=== PATIENT | male | born 1950 | race Caucasian/White ===

== ENCOUNTER 2022-08-05 15:30 | Emergency (ER) | payer MEDICARE ==
[~2022-08-05] VITALS: Ht 185.4 cm; Wt 80.0 kg
[2022-08-05 15:39] VITALS: BP 163/83
[2022-08-05] MEDS ORDERED: TERAZOSIN1 MG PO (15:41)
[2022-08-05] MEDS ORDERED: FINASTERIDE5 MG PO (15:41)
[2022-08-05] MEDS ORDERED: TIAZAC180 MG (15:42)
[2022-08-05] MEDS ORDERED: FLECAINIDE100 MG PO (15:43)
[2022-08-05] MEDS ORDERED: TAMSULOSIN HCL0.4 MG PO (15:43)
[2022-08-05] MEDS ORDERED: ZETIA10 MG PO (15:43)
[2022-08-05] MEDS ORDERED: FUROSEMIDE20 MG PO (15:44)
[2022-08-05] MEDS ORDERED: LOSARTAN POTASS50 MG PO (15:44)
[2022-08-05] MEDS ORDERED: ASPIRIN325 MG PO (15:45)
[2022-08-05] MEDS ORDERED: COQ10300 MG PO (15:45)
[2022-08-05] MEDS ORDERED: POTASSIUM CITRATE XX (15:47)
[2022-08-05 16:20] LABS: BASO% 0.4 % (0-3); EOS% 2.2 % (0-8); HEMATOCRIT 42.4 % (39.0-50.0); HEMOGLOBIN 14.2 g/dl (14.0-18.0); IMMATURE GRANULOCYTES 0.4 % (0.0-5.0); LYMPH% 21.4 % (15-41); MEAN CELL VOLUME 88.9 fL CALC (80.0-100.0); MEAN CORPUSCULAR HGB 29.8 pG CALC (26.0-32.0); MEAN CORPUSCULAR HGB CONC 33.5 g/dL CAL (32.0-36.0); MONO% 6.9 % (2-13); NEUT# 3.08 thou/uL (1.82-7.42); NEUT% 68.7 % (42-76); RED BLOOD COUNT 4.77 mill/uL (4.70-6.10); RED CELL DISTRI WIDTH 12.5 % (11.5-15.5)
[2022-08-05 16:31] VITALS: BP 138/120
[2022-08-05 16:43] LABS: ALBUMIN 4.2 g/dL (3.2-5.0); ALKALINE PHOSPHATASE 41 u/l (38-126); ANION GAP 11 (6-22 (CALC)); BILIRUBIN, TOTAL 0.4 mg/dL (0.0-1.4); BUN 40 mg/dL (8-23); BUN/CREATININE RATIO 38 (12-20 (CALC)); CARBON DIOXIDE 26 mmol/l (22-30); CHLORIDE 108 mmol/l (95-108); GFR FOR AFR.AMER. > 60 ML/MIN (>=60 (CALC)); GFR OTHER RACES > 60 ML/MIN (>=60 (CALC)); POTASSIUM 4.1 mmol/l (3.5-5.1); SGOT/AST 34 u/l (19-48); SODIUM 141 mmol/l (137-146); TOTAL PROTEIN 6.9 g/dL (6.3-8.2)
[2022-08-05 17:00] VITALS: BP 131/70
[2022-08-05 17:31] VITALS: BP 141/74
[2022-08-05] MEDS ORDERED: VOLTAREN1%GEL TOP (17:37)
[2022-08-05 18:00] VITALS: BP 146/73
[2022-08-05 18:14] VITALS: BP 146/73
== END 2022-08-05 18:21 | disposition home or self-care (01) ==
LOC: ED 15:30
PROVIDERS: Family Medicine
DX: M25.512 Pain in left shoulder (principal); I10 Essential (primary) hypertension